=== PATIENT | male | born 1995 | race Caucasian/White ===

== ENCOUNTER 2019-10-11 18:08 | Emergency (ER) | payer SELFPAY ==
--- NOTE | 2019-10-11 18:34 | EDM.PDOC ---
ED HPI GENERAL MEDICAL PROBLEM - General Chief Complaint: ENT Problem Stated Complaint: SINUS INFECTION Time Seen by Provider: 10/11/19 18:29 Source of Information: Reports: Patient History Limitations: Reports: No Limitations - History of Present Illness INITIAL COMMENTS - FREE TEXT/NARRATIVE: HISTORY AND PHYSICAL: History of present illness: Patient is a 24-year-old male who presents to the emergency room with complaints of a fractured tooth to the left posterior upper molar with pain and swelling. He states the tooth was fractured "a while ago" and has not had much problems with it until yesterday. He states the gumline is swollen, tender to touch and now radiates pain up into the right cheek and sinus area. He states he does have a dental appointment next week. Patient denies any fever, chills, headache, change in vision, syncope or near syncope. Denies any chest pain, back pain, shortness of breath or cough. Denies any GI or symptoms. Patient has been eating and drinking appropriately. Review of systems: As per history of present illness and below otherwise all systems reviewed and negative. Past medical history: As per history of present illness and as reviewed below otherwise noncontributory. Surgical history: As per history of present illness and as reviewed below otherwise noncontributory. Social history: See social history for further information Family history: As per history of present illness and as reviewed below otherwise noncontributory. Physical exam: General: Well developed and well-nourished 24-year-old male. Alert and oriented. Nontoxic-appearing and in no acute distress. HEENT: Atraumatic, normocephalic, pupils equal and reactive bilaterally, negative for conjunctival pallor or scleral icterus, mucous membranes moist, moderate tooth decay noted (no nerve root exposure) to the left upper posterior molar with some soft tissue swelling. TMs normal bilaterally, throat clear, neck supple, nontender, trachea midline. No drooling or trismus noted. No meningeal signs. No hot potato voice noted. Lungs: Clear to auscultation, breath sounds equal bilaterally, chest nontender. Heart: S1S2, regular rate and rhythm without overt murmur Abdomen: Soft, nondistended, nontender. Skin: Intact, warm, dry. No lesions or rashes noted. Extremities: Atraumatic, moves all extremities per self without difficulty or deficits, negative for cords or calf pain. Neurovascular unremarkable. Neuro: Awake, alert, oriented. Cranial nerves II through XII unremarkable. Cerebellum unremarkable. Motor and sensory unremarkable throughout. Exam nonfocal. Notes: Follow-up, medication and supportive care measures were reviewed and discussed. Voices understanding and is agreeable to plan of care. Denies any further questions or concerns at this time. Diagnostics: None Therapeutics: Dental Balls Prescription: Pen VK Impression: Dental abscess Plan: 1. Please use Tylenol and/or Ibuprofen as needed for pain and fever management. You can take [id number] medications for symptomatic relief (Mucinex, Tylenol Sinus etc...) 2. Take the antibiotic as prescribed. 3. Please follow up with your Dentist NACHO. Return to the ED as needed as discussed. Definitive disposition and diagnosis as appropriate pending reevaluation and review of above. left tooth Pain Score (Numeric/FACES): 6 - Related Data Allergies Allergy/AdvReac Type Severity Reaction Status Date / Time No Known Allergies Allergy Verified 10/11/19 18:29 Home Meds: Home Meds Acetaminophen/HYDROcodone [[place] 325-5 MG] 1 dose PO Q4H #20 tablet 10/11/19 [Rx] Penicillin V Potassium [Veetids] 500 mg PO TID 7 Days #21 tab 10/11/19 [Rx] Past Medical History - Past Health History Medical/Surgical History: Denies Medical/Surgical History - Infectious Disease History Infectious Disease History: Reports: Chicken Pox Social & Family History - Family History Family Medical History: Noncontributory ED ROS ENT - Review of Systems Review Of Systems: Comprehensive ROS is negative, except as noted in HPI. ED EXAM, ENT - Physical Exam Exam: See Below (See dictation) Course - Vital Signs Last Recorded V/S: Last Vital Signs Temp 98.1 F 10/11/19 18:27 Pulse 94 10/11/19 18:27 Resp 16 10/11/19 18:27 BP 112/69 10/11/19 18:27 Pulse Ox 100 10/11/19 18:27 - Orders/Labs/Meds Meds: Medications Discontinued Medications Generic Name Dose Route Start Last Admin Trade Name Freq PRN Reason Stop Dose Admin Benzocaine 2 each 10/11/19 18:37 Hurricaine One 20% MUCMEM 10/11/19 18:38 ONETIME ONE Lidocaine HCl 15 ml 10/11/19 18:37 Xylocaine 2% Viscous PO 10/11/19 18:38 ONETIME ONE Departure - Departure Time of Disposition: 18:51 Disposition: Home, Self-Care 01 Clinical Impression: Dental abscess - Discharge Information Prescriptions: Acetaminophen/HYDROcodone [[place] 325-5 MG] 1 dose PO Q4H #20 tablet Penicillin V Potassium [Veetids] 500 mg PO TID 7 Days #21 tab Instructions: Dental Abscess, [id number] Referrals: PCP,None [Primary Care Provider] - Forms: ED Department Discharge Additional Instructions: The following information is given to patients seen in the emergency department who are being discharged to home. This information is to outline your options for follow-up care. We provide all patients seen in our emergency department with a follow-up referral. The need for follow-up, as well as the timing and circumstances, are variable depending upon the specifics of your emergency department visit. If you don't have a primary care physician on staff, we will provide you with a referral. We always advise you to contact your personal physician following an emergency department visit to inform them of the circumstance of the visit and for follow-up with them and/or the need for any referrals to a consulting specialist. The emergency department will also refer you to a specialist when appropriate. This referral assures that you have the opportunity for follow-up care with a specialist. All of these measure are taken in an effort to provide you with optimal care, which includes your follow-up. Under all circumstances we always encourage you to contact your private physician who remains a resource for coordinating your care. When calling for follow-up care, please make the office aware that this follow-up is from your recent emergency room visit. If for any reason you are refused follow-up, please contact the [facility] at and asked to speak to the emergency department charge nurse. [facility] [address] [place] [id number] [address] Thank you for choosing the [facility] emergency department in [place] for your medical needs today. It was a pleasure caring for you. You were seen in the emergency department for dental decay and abscess. 1. Please use Tylenol and/or Ibuprofen as needed for pain and fever management. You can take [id number] medications for symptomatic relief (Mucinex, Tylenol Sinus etc...) 2. Take the antibiotic as prescribed. 3. Please follow up with your Dentist NACHO. Return to the ED as needed as discussed. Sepsis Event Note (ED) - Evaluation Sepsis Screening Result: No Definite Risk - Focused Exam Vital Signs: Vital Signs Temp Pulse Resp BP Pulse Ox 10/11/19 18:27 98.1 F 94 16 112/69 100
[2019-10-11] MEDS ORDERED: Benzocaine 20% Topical Spray UD MUCMEM ONE (18:37)
[2019-10-11] MEDS ORDERED: Lidocaine 2% Viscous Solution 15 ML Cup PO ONE (18:37)
== END 2019-10-11 19:01 | disposition home or self-care (01) ==
LOC: MW.ED 18:08
DX: K04.7 Periapical abscess without sinus (principal)
CPT/HCPCS: 99282; 99283; A9270-GY

== ENCOUNTER 2021-04-06 12:59 | Emergency (ER) | payer SELFPAY | END 2021-04-06 14:09 | disposition home or self-care (01) | LOC: MW.ED 12:59 | DX: B82.0 Intestinal helminthiasis, unspecified (principal) | CPT/HCPCS: 99282 ==

== ENCOUNTER 2022-04-30 17:03 | Emergency (ER) | payer SELFPAY ==
[2022-04-30] MEDS ORDERED: Lidocaine 1% 5 ML VIAL INJECT STA (17:28)
[2022-04-30] MEDS ORDERED: Lidocaine 1% 5 ML VIAL INJECT ONE (18:09)
== END 2022-04-30 18:40 | disposition home or self-care (01) ==
LOC: MW.ED 17:03
DX: S81.812A Laceration without foreign body, left lower leg, initial encounter (principal); Z72.0 Tobacco use; W22.8XXA Striking against or struck by other objects, initial encounter
CPT/HCPCS: 12002; 99282; J3490

== ENCOUNTER 2022-07-29 03:43 | Emergency (ER) | payer SELFPAY | END 2022-07-29 05:29 | disposition home or self-care (01) | LOC: MW.ED 03:43 | DX: S09.92XA Unspecified injury of nose, initial encounter (principal); Y04.2XXA Assault by strike against or bumped into by another person, initial encounter | CPT/HCPCS: 70486; 70486-26; 99283 ==

== ENCOUNTER 2022-12-01 03:34 | Emergency (ER) | payer SELFPAY ==
[2022-12-01] MEDS ORDERED: Acetaminophen/HYDROcodone 325-5 MG Tab PO ONE (04:21)
== END 2022-12-01 04:28 | disposition home or self-care (01) ==
LOC: MW.ED 03:34
DX: K02.9 Dental caries, unspecified (principal); Z86.16 Personal history of COVID-19
CPT/HCPCS: 99282; A9270

== ENCOUNTER 2022-12-03 09:08 | Emergency (ER) | payer SELFPAY | END 2022-12-03 09:33 | disposition left against medical advice (07) | LOC: MW.ED 09:08 | DX: Z53.21 Procedure and treatment not carried out due to patient leaving prior to being seen by health care provider (principal) ==

== ENCOUNTER 2022-12-25 14:29 | Emergency (ER) | payer SELFPAY ==
[2022-12-25] MEDS ORDERED: Clindamycin HCl 150 MG Cap PO ONE (15:02)
[2022-12-25] MEDS ORDERED: Acetaminophen/oxyCODONE 325-5 MG Tab PO ONE (15:03)
== END 2022-12-25 15:27 | disposition home or self-care (01) ==
LOC: MW.ED 14:29
DX: K04.7 Periapical abscess without sinus (principal); Z86.16 Personal history of COVID-19
CPT/HCPCS: 99282; A9270; 99283

== ENCOUNTER 2023-10-31 16:35 | Emergency (ER) | payer SELFPAY | END 2023-10-31 18:44 | disposition home or self-care (01) | LOC: MW.ED 16:35 | DX: Z77.098 Contact with and (suspected) exposure to other hazardous, chiefly nonmedicinal, chemicals (principal); Z86.16 Personal history of COVID-19 | CPT/HCPCS: 99283 ==

== ENCOUNTER 2023-11-25 17:12 | Emergency (ER) | payer SELFPAY ==
[2023-11-25] MEDS: Lidocaine 1% 5 ML VIAL INJECT ONE (18:23)
[2023-11-25] MEDS: Cephalexin 500 MG Cap PO ONE (18:46)
== END 2023-11-25 19:05 | disposition home or self-care (01) ==
LOC: MW.ED 17:12
DX: S61.012A Laceration without foreign body of left thumb without damage to nail, initial encounter (principal); Z86.16 Personal history of COVID-19; Z75.8 Other problems related to medical facilities and other health care; W23.1XXA Caught, crushed, jammed, or pinched between stationary objects, initial encounter; Y99.0 Civilian activity done for income or pay
CPT/HCPCS: 12002; 73130; 99283; A9270; J3490

== ENCOUNTER 2023-12-11 14:35 | Emergency (ER) | payer SELFPAY ==
[2023-12-11] MEDS: Lidocaine 1% 5 ML VIAL INJECT STA (16:18)
== END 2023-12-11 16:41 | disposition home or self-care (01) ==
LOC: MW.ED 14:35
DX: S61.012D Laceration without foreign body of left thumb without damage to nail, subsequent encounter (principal); X58.XXXD Exposure to other specified factors, subsequent encounter; Z75.8 Other problems related to medical facilities and other health care
CPT/HCPCS: 99281; J3490

== ENCOUNTER 2024-05-06 05:48 | Emergency (ER) | payer SELFPAY ==
[2024-05-06] MEDS: Ketorolac 60 MG/2 ML SDV IM ONE (06:10)
[2024-05-06] MEDS: Penicillin V Potassium 500 MG Tab PO SCH (06:12)
[2024-05-06] MEDS: Penicillin V Potassium 500 MG Tab ONE (06:17)
== END 2024-05-06 06:17 | disposition home or self-care (01) ==
LOC: MW.ED 05:48
DX: K04.7 Periapical abscess without sinus (principal); Z79.899 Other long term (current) drug therapy
CPT/HCPCS: 99282; A9270

== ENCOUNTER 2024-05-12 03:08 | Emergency (ER) | payer SELFPAY ==
[2024-05-12] MEDS: Lidocaine 1% with EPINEPHrine 1:100,000 10 ML MDV INJECT ONE (04:10)
[2024-05-12] MEDS: Ibuprofen 600 MG Tab PO ONE (04:35)
[2024-05-12] MEDS: Acetaminophen 500 MG Tab PO ONE (04:35)
== END 2024-05-12 04:47 | disposition home or self-care (01) ==
LOC: MW.ED 03:08
DX: K04.7 Periapical abscess without sinus (principal); Z79.899 Other long term (current) drug therapy
CPT/HCPCS: 41800; 99283; A9270

== ENCOUNTER 2024-09-16 01:45 | Emergency (ER) | payer SELFPAY ==
[2024-09-16 02:11] LABS: BASOPHILS ABSOLUTE AUTO 0.05 K/uL (0.00-0.20); BASOPHILS PERCENT AUTO 0.5 % (0.0-1.0); EOSINOPHILS ABSOLUTE AUTO 0.31 K/uL (0.00-0.45); EOSINOPHILS PERCENT AUTO 3.3 % (0.0-6.0); IMMATURE GRAN ABSOLUTE AUTO 0.02 K/uL (0.00-0.05); IMMATURE GRAN PERCENT AUTO 0.2 % (0.0-0.4); LYMPHOCYTES ABSOLUTE AUTO 2.63 K/uL (1.00-4.80); LYMPHOCYTES PERCENT AUTO 28.0 % (24.0-44.0); MEAN PLATELET VOLUME 9.7 fL (9.4-12.4); MONOCYTES ABSOLUTE AUTO 0.77 K/uL (0.00-0.80); MONOCYTES PERCENT AUTO 8.2 % (0.0-8.0); NEUTROPHILS ABSOLUTE AUTO 5.61 K/uL (1.80-7.70); NEUTROPHILS PERCENT AUTO 59.8 % (41.0-71.0); NRBC ABSOLUTE 0.00 K/uL (0.00-0.02); NRBC PERCENT 0.0 /100WBC (0.0-0.2); PLATELET COUNT,PLT 284 K/uL (150-400); RED BLOOD CELL COUNT 4.91 M/uL (4.52-5.90); WHITE BLOOD CELL COUNT,WBC 9.39 K/uL (3.9-11.3)
[2024-09-16 02:40] LABS: A/G RATIO 1.2 (0.9-1.6); ALANINE AMINOTRANSFERASE,ALT 58 IU/L (14-63); ASPARTATE AMNIOTRANSFERASE,AST 20 IU/L (15-37); BILIRUBIN TOTAL 0.5 mg/dL (0.2-1.0); BLOOD UREA NITROGEN,BUN 15 mg/dL (7.0-18.0); CARBON DIOXIDE,CO2 28.0 mmol/L (21.0-32.0); CHLORIDE,CL 104 mmol/L (98-107); CREATININE 1.1 mg/dL (0.8-1.3); GLUCOSE RANDOM 118 mg/dL (74-106); POTASSIUM,K 3.9 mmol/L (3.5-5.1); PRO B-TYPE NATRIUR PEPT,BNPPRO 15 pg/mL (0-125); PROTEIN TOTAL,TP 7.8 g/dL (6.4-8.2); SODIUM,NA 143 mmol/L (136-148)
[2024-09-16 02:53] LABS: ESTIMATED GFR 93 mL/min (>60)
== END 2024-09-16 03:15 | disposition home or self-care (01) ==
LOC: MW.ED 01:45
DX: R09.1 Pleurisy (principal); R06.02 Shortness of breath; F43.9 Reaction to severe stress, unspecified; F17.200 Nicotine dependence, unspecified, uncomplicated
CPT/HCPCS: 36415; 71045; 71045-26; 80053; 83690; 83735; 83880; 84484; 85025; 87426-QW; 93005; 93010; 99283; 99285

== ENCOUNTER 2024-11-24 16:32 | Emergency (ER) | payer SELFPAY | END 2024-11-24 16:57 | LOC: MW.ED 16:32 | DX: Z02.89 Encounter for other administrative examinations (principal) | CPT/HCPCS: 99282 ==